=== PATIENT | male | born 1970 | race Caucasian/White ===

== ENCOUNTER 2016-07-13 07:43 | Emergency (ER) | payer BC ==
[2016-07-13 07:55] VITALS: BP 119/75
--- NOTE | 2016-07-13 08:59 | UC ---
Throat Pain/Nasal Wood HPI - HPI Summary HPI Summary: SINUS PRESSURE FOR ONE WEEK. WORSE ON LEFT. SINUS DRAINAGE. HEADACHE ON AND OFF. FEELS FEVERISH AT TIMES. SLIGHT COUGH AT ONSET OF SYMPTOMS. Had some mild relief with tylenol cold and sinus initially but not now. - History of Current Complaint Chief Complaint: UCRespiratory Stated Complaint: SINUS COMPLAINT Time Seen by Provider: 07/13/16 07:56 - Allergies/Home Medications Allergies/Adverse Reactions: Allergies Allergy/AdvReac Type Severity Reaction Status Date / Time No Known Allergies Allergy Verified 07/13/16 07:47 PMH/Surg Hx/FS Hx/Imm Hx Previously Healthy: Yes Endocrine History Of: Denies: Diabetes, Thyroid Disease Cardiovascular History Of: Reports: Hypertension Denies: Cardiac Disorders Respiratory History Of: Denies: COPD, Asthma GI/ History Of: Denies: Ulcer - Surgical History Surgical History: Yes Surgery Procedure, Year, and Place: Appendectomy, ~1998, [place]; [place] Teeth Extractions, ~1987, [place], [place] - Family History Known Family History: Positive: Hypertension - Social History Alcohol Use: None Substance Use Type: None Smoking Status (MU): Never Smoked Tobacco - Immunization History Most Recent Influenza Vaccination: DEC 2015 Most Recent Tetanus Shot: 2009 Review of Systems Constitutional: Negative Skin: Negative Eyes: Negative ENT: Other - sinus pain Respiratory: Cough Cardiovascular: Negative Gastrointestinal: Negative Genitourinary: Negative Motor: Negative Neurovascular: Negative Musculoskeletal: Negative Neurological: Negative Psychological: Negative All Other Systems Reviewed And Are Negative: Yes Physical Exam Triage Information Reviewed: Yes Appearance: Well-Appearing, No Pain Distress, Well-Nourished - very pleasant Vital Signs: Initial Vital Signs Temp 97.5 F 07/13/16 07:49 Pulse 76 07/13/16 07:49 Resp 16 07/13/16 07:49 BP 119/75 07/13/16 07:49 Pulse Ox 96 07/13/16 07:49 Vital Signs Reviewed: Yes Eye Exam: Normal ENT: Positive: Hearing grossly normal, TMs normal, Other: - + left frontal and maxillary tenderness. Increased prssure with bending fwd.. Negative: TM bulging , TM dull, TM red, Tonsillar swelling, Tonsillar exudate - + PND Dental Exam: Normal Neck exam: Normal Neck: Positive: Supple, Nontender, No Lymphadenopathy Respiratory Exam: Normal Respiratory: Positive: Lungs clear, Normal breath sounds, No respiratory distress, No accessory muscle use. Negative: Crackles, Rhonchi, Stridor, Wheezing Cardiovascular Exam: Normal Cardiovascular: Positive: RRR, No Murmur, Pulses Normal, Brisk Capillary Refill Abdomen Description: Positive: Nontender, Soft Bowel Sounds: Positive: Present Musculoskeletal Exam: Normal Neurological Exam: Normal Psychological Exam: Normal Skin Exam: Normal Throat Pain/Nasal Course/Dx - Course Assessment/Plan: sinusitis - Differential Dx/Diagnosis Differential Diagnosis/HQI/PQRI: Pharyngitis, Sinusitis, URI Provider Diagnoses: sinusitis Discharge - Discharge Plan Condition: Stable Disposition: HOME Prescriptions: Amoxicillin (*) [Amoxicillin 875 MG (*)] 875 mg PO BID #20 tab Patient Education Materials: Sinusitis (ED) Referrals: Kip Richmond [employer] [Primary Care Provider] - 5 Days Additional Instructions: Take a probiotic every day that you are on the antibiotic. Fluids and rest. Flonase nasal spray can help as well.
== END 2016-07-13 09:09 | disposition home or self-care (01) ==
LOC: UCCORT 07:43
DX: J32.9 Chronic sinusitis, unspecified (principal); I10 Essential (primary) hypertension
CPT/HCPCS: 99212; G0463